=== PATIENT | male | born 1990 | race Caucasian/White ===

== ENCOUNTER 2023-12-01 12:33 | Emergency (ER) | payer OTHER ==
[~2023-12-01] VITALS: Ht 182.9 cm; Wt 100.8 kg
[2023-12-01 13:16] LABS: BASO # 0.1 10^3/uL (0.0-0.2); BASO % 0.9 % (0.0-1.0); EOS # 0.2 10^3/uL (0.0-0.5); HEMOGLOBIN 16.8 g/dl (13.5-17.5); LYMPH # 2.8 10^3/uL (1.5-5.0); LYMPH % 43.4 % (24.0-44.0); MEAN CORPUSCULAR HEMOGLOBIN 31.5 pg (27.0-33.0); MEAN CORPUSCULAR HGB CONC 34.3 g/dl (32.0-36.5); MEAN CORPUSCULAR VOLUME 91.9 fl (80.0-96.0); MONO # 0.6 10^3/uL (0.0-0.8); NEUTROPHILS # 2.7 10^3/uL (1.5-8.5); NEUTROPHILS % 42.4 % (36.0-66.0); PLATELET COUNT, AUTOMATED 332 10^3/uL (150-450); RED BLOOD COUNT 5.33 10^6/uL (4.30-6.10); WHITE BLOOD COUNT 6.4 10^3/uL (4.0-10.0)
[2023-12-01 13:40] LABS: LIPASE 28 U/L (12-53)
[2023-12-01 13:42] LABS: ALKALINE PHOSPHATASE 97 U/L (46-116); ALT/SGPT 129 U/L (7.0-40); AST/SGOT 49 U/L (<34); BILIRUBIN,DIRECT 0.2 MG/DL (<0.4); BILIRUBIN,TOTAL 0.7 MG/DL (0.3-1.2); BLOOD UREA NITROGEN 18 MG/DL (9-23); CALCIUM LEVEL 9.1 MG/DL (8.5-10.1); CARBON DIOXIDE LEVEL 30 MMOL/L (20-31); CHLORIDE LEVEL 108 MMOL/L (98-107); CREATININE FOR GFR 1.02 MG/DL (0.70-1.30); GLOMERULAR FILTRATION RATE > 60.0 (>60); GLUCOSE, FASTING 63 MG/DL (60-100); POTASSIUM SERUM 4.7 MMOL/L (3.5-5.1); SODIUM LEVEL 141 MMOL/L (136-145); TOTAL PROTEIN 7.3 G/DL (5.7-8.2)
[2023-12-01] MEDS: traMADol 50 MG TAB PO ONE (14:02)
[2023-12-01] MEDS ORDERED: HOME MED LIST COMPLETE! XX SCH (15:00)
[2023-12-01] MEDS ORDERED: ISOVUE-370 76% 100ML VIAL As Ordered ONE (15:09)
[2023-12-01 15:55] LABS: HEPATITIS B CORE ANTIBODY IGM NEGATIVE (NEGATIVE); HEPATITIS C VIRUS ABY INDEX < 0.02 INDEX (<0.8)
[2023-12-01] MEDS ORDERED: MIRA3350 PO (16:30)
[2023-12-01 16:34] VITALS: BP 134/99; TEMP 97.6; O2SAT 97
== END 2023-12-01 16:50 | disposition home or self-care (01) ==
LOC: M ED 12:33
DX: R10.9 Unspecified abdominal pain (principal); Z79.899 Other long term (current) drug therapy
CPT/HCPCS: 36415; 74177; 76705; 80048; 80074; 80076; 81001; 83690; 85025; 99284; Q9967

== ENCOUNTER 2024-08-10 20:46 | Emergency (ER) | payer OTHER ==
[~2024-08-10] VITALS: Ht 182.9 cm; Wt 90.0 kg
[~2024-08-10 20:46] MED LIST: MIRA3350 PO
[2024-08-10 20:52] VITALS: BP 191/112; TEMP 99; O2SAT 99
[2024-08-11] MEDS ORDERED: IBUP-1022 PO (00:32)
[2024-08-11] MEDS: IBUPROFEN 600MG TAB PO ONE (01:00)
== END 2024-08-11 01:42 | disposition home or self-care (01) ==
LOC: M ED 20:46
DX: S93.401A Sprain of unspecified ligament of right ankle, initial encounter (principal); X50.0XXA Overexertion from strenuous movement or load, initial encounter; F17.200 Nicotine dependence, unspecified, uncomplicated; Z79.1 Long term (current) use of non-steroidal anti-inflammatories (NSAID); Z79.899 Other long term (current) drug therapy; Y92.009 Unspecified place in unspecified non-institutional (private) residence as the place of occurrence of the external cause; Y93.89 Activity, other specified; Y99.0 Civilian activity done for income or pay

== ENCOUNTER 2025-05-15 11:05 | Emergency (ER) | payer OTHER ==
[~2025-05-15] VITALS: Ht 182.9 cm; Wt 92.4 kg
[~2025-05-15 11:05] MED LIST changes: +IBUP-1022 PO
[2025-05-15 12:25] LABS: BASO # 0.1 10^3/uL (0.0-0.2); BASO % 1.1 % (0.0-1.0); EOS # 0.1 10^3/uL (0.0-0.5); EOS % 0.6 % (0.0-3.0); LYMPH # 2.0 10^3/uL (1.5-5.0); LYMPH % 22.4 % (24.0-44.0); MONO # 0.8 10^3/uL (0.0-0.8); MONO % 9.3 % (2.0-8.0); NEUTROPHILS # 6.0 10^3/uL (1.5-8.5); NEUTROPHILS % 65.9 % (36.0-66.0); PLATELET COUNT, AUTOMATED 375 10^3/uL (150-450)
[2025-05-15 12:38] LABS: INR 1.02
[2025-05-15 13:12] LABS: CALCIUM LEVEL 8.8 MG/DL (8.5-10.1); CARBON DIOXIDE LEVEL 28 MMOL/L (20-31); CHLORIDE LEVEL 102 MMOL/L (98-107); CREATININE FOR GFR 1.09 MG/DL (0.70-1.30); GLOMERULAR FILTRATION RATE > 90.0 (>60); POTASSIUM SERUM 4.4 MMOL/L (3.5-5.1); SODIUM LEVEL 140 MMOL/L (136-145)
[2025-05-15 13:37] VITALS: BP 134/90; TEMP 99; O2SAT 97
== END 2025-05-15 13:40 | disposition home or self-care (01) ==
LOC: M ED 11:05
DX: M25.562 Pain in left knee (principal); I83.12 Varicose veins of left lower extremity with inflammation